=== PATIENT | male | born 1965 | race Caucasian/White ===

== ENCOUNTER 2017-10-15 14:46 | Inpatient (IN) | payer BC ==
[~2017-10-15] VITALS: Ht 188 cm; Wt 128.5 kg
[2017-10-15] MEDS: VANCOMYCIN 1GM/NS 250 ML 250 ML IV SCH (15:15)
[2017-10-15 15:54] VITALS: BP 181/91
[2017-10-15 16:48] LABS: HEMATOCRIT 39.4 % (38.2-49.6); MEAN CORPUSCULAR HEMOGLOBIN 29.1 pg (28-32); MEAN CORPUSCULAR VOLUME 88.3 fL (81-99); PLATELET COUNT 287 x10e3/uL (140-360); RED BLOOD COUNT 4.46 x10e6/uL (4.3-5.7); RED CELL DISTRIBUTION WIDTH 13.6 % (11.7-14.4)
[2017-10-15] MEDS ORDERED: GADOBENATE DIMEGLUMINE 1 ML IV ONE (16:53)
[2017-10-15 17:08] LABS: ALANINE AMINOTRANSFERASE 22 IU/L (0-55); ALBUMIN 3.7 g/dL (3.5-5.0); ALBUMIN/GLOBULIN RATIO 1.1 (0.8-2.0); ALKALINE PHOSPHATASE 61 IU/L (40-150); ANION GAP 13.6 mmol/L (8-16); BLOOD UREA NITROGEN 15 mg/dL (7-26); BUN/CREATININE RATIO 15 (6-25); CALCIUM 9.4 mg/dL (8.4-10.2); CARBON DIOXIDE 25 mmol/L (22-29); CHLORIDE 100 mmol/L (98-107); EST GLOMERULAR FILTRATION RATE > 60 ML/MIN (60-); GLUCOSE 74 mg/dL (74-118); POTASSIUM 3.6 mmol/L (3.5-5.1); SODIUM 135 mmol/L (136-145)
--- NOTE | 2017-10-15 18:04 | Diagnostic Imaging Report ---
TECHNIQUE: Magnetic resonance imaging of the LEFT foot (forefoot) was performed WITH and WITHOUT injected contrast, 20 cc of intravenous MultiHance. HISTORY: Ulcer great toe, rule out osteomyelitis COMPARISON: Left foot radiographs October 16, 2017 DISCUSSION: Bone: Bone marrow edema and corresponding confluence decreased fatty marrow signal involving the distal aspect of the first proximal phalanx and the first distal phalanx. Subtle oblique linear hypointensity at the distal aspect of the first proximal phalanx, this could reflect the age-indeterminate sequela of a nondisplaced fracture. Joints: No dislocation. Small nonspecific effusion involving the first interphalangeal joint and trace nonspecific effusion of the first metatarsophalangeal joint. Soft Tissues: Soft tissue defect at the plantar and medial aspect of the great toe. Nonspecific soft tissue edema, most notably the dorsal aspect of the foot. IMPRESSION: 1. Osteomyelitis involving the distal aspect of the first proximal phalanx and the first distal phalanx of the great toe. Given this distribution and the small nonspecific first interphalangeal joint effusion, these findings are concerning for potential associated septic arthropathy. 2. No soft tissue abscess. 3. Questionable sequela of an age-indeterminate, nondisplaced fracture involving the distal aspect of the first proximal phalanx. A preliminary report was provided by Dr. Katz on October 15, 2017 at 1803 hours. Signed by: Dr. Billy Gutierrez D.O., M.M.M. on 10/19/2017 8:05 AM
--- NOTE | 2017-10-15 20:03 | History and Physical ---
CHIEF COMPLAINT: Right lower extremity ulcer and left lower extremity ulcer. HISTORY OF PRESENT ILLNESS: Mr. Rachid Rodriguez has a history of idiopathic peripheral neuropathy who was in his usual state of health until about 5-6 months prior to admission the patient developed a blister in his left lower foot. He was seen by global marketing intern, and and did not do any good. He was put on p.o. antibiotics for the last 3 months but the patient has not improved. Yesterday, the patient came to the clinic and was found to have sloughing of tissue in the left lower foot and the great toe, and also foul smelling discharge. The patient was admitted to the hospital for IV antibiotics and possible debridement. PAST MEDICAL HISTORY: History of idiopathic peripheral neuropathy, history of hypertension, history of testosterone deficiency. MEDICATIONS: Testosterone and also Lyrica. 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 Also had ACL reconstruction and also in 2012 the patient had toes off on the right foot. SOCIAL HISTORY: No ETOH. No IV drug abuse. Lives with and no smoking history either. REVIEW OF SYSTEMS: Negative for chest pain. No shortness of breath. No nausea, vomiting or diarrhea, no constipation, no rectal bleeding, no hematochezia, no hematemesis. PHYSICAL EXAMINATION VITAL SIGNS: Temperature 99.0, pulse 112, blood pressure 181/91, pulse oximetry 96%. HEENT: Normocephalic, atraumatic. Pupils are reactive to light and accommodation. CVS: S1 and S2 normal. Regular rate and rhythm. ABDOMEN: Nontender, nondistended. EXTREMITIES: Right lower extremity, 5th metatarsal with ulceration, lateral part, deep, granulation tissue present, small amount of sloughing present too. Left lower extremity with ulceration, deep, with exposure of tissue in the left great toe, too. Circulation decreased in both feet. The patient has been seen by Dr. Jefferson and was diagnosed with osteomyelitis. ASSESSMENT: Osteomyelitis. Imaging of the foot, MRI was done and showed concerning for osteomyelitis of the proximal and distal phalanx, left great toe. In addition, there might be nondisplaced fracture of the proximal phalanx of the great toe, as described. PLAN: Put a PICC line on. An ID consult has been done. Vancomycin will be started. Will culture the toe and also do an additional MRI of the right great toe. IV vancomycin will be started. Dr. Jefferson has been consulted. Further recommendations depending on clinical course. Will continue to monitor the patient along with the consultants. Job#: [id number] GH
[2017-10-15] MEDS ORDERED: SODIUM CHLORIDE 0.9% 250ML 0 ML ONE (20:13)
[2017-10-15 20:20] VITALS: BP 175/87
--- NOTE | 2017-10-15 22:05 | Diagnostic Imaging Report ---
EXAM: CHEST XRAY LINE PLACEMENT, AP 1 view INDICATION: PICC placement COMPARISON: None FINDINGS: LINES/TUBES: Tip of left approach PICC terminates in expected location of the mid superior vena cava. LUNGS: No consolidations or edema. PLEURA: No effusions or pneumothorax. HEART AND MEDIASTINUM: Normal size and contour. BONES AND SOFT TISSUES: No acute findings. IMPRESSION: Tip of left approach PICC terminates in expected location of the mid superior vena cava. Signed by: Dr. Selina Santos M.D. on 10/15/2017 10:01 PM
[2017-10-16] VITALS: BP 136/74
[2017-10-16] MEDS ORDERED: SODIUM CHLORIDE 0.9% 250ML 250 ML ONE (03:58)
[2017-10-16] MEDS: VANCOMYCIN 1GM/NS 250 ML 250 ML IV SCH ×2 (04:01→18:01)
[2017-10-16 05:00] VITALS: BP 126/59
[2017-10-16 08:44] VITALS: BP 143/85
[2017-10-16 13:54] VITALS: BP 129/69
--- NOTE | 2017-10-16 16:20 | Consultation ---
DATE OF CONSULTATION: REASON FOR CONSULTATION: Nonhealing ulcer on both feet. HISTORY OF PRESENT ILLNESS: This patient who is a 52-year-old gentleman has history of neuropathy and history of obesity, comes in with nonhealing ulcers on his both feet actually. First one started on his right and the second one started on his left. The patient was admitted because he was not getting any better. The patient has been on antibiotics for 3 months, so he was admitted and infectious disease was consulted. PAST MEDICAL HISTORY: Idiopathic peripheral neuropathy, which is getting progressively worse, hypertension, obesity, and testosterone deficiency. MEDICATIONS: At home, he is on testosterone and Lyrica. SOCIAL HISTORY: There is no smoking, drug abuse, or alcohol abuse. PAST SURGICAL HISTORY: Right foot amputation of the 2nd and 3rd toe and 4th metatarsal and ACL reconstructive surgery. FAMILY HISTORY: Hypertension. REVIEW OF SYSTEMS HEENT: Negative. PULMONARY: Negative. CARDIAC: Negative. : Negative. LABORATORY AND DIAGNOSTIC DATA: White count 9.5 and hemoglobin 13. Sodium 135 and potassium 3.6. Liver enzyme within normal limits. He had an MRI of his foot, which showed osteomyelitis to proximal and distal phalanges of the left great toe. PHYSICAL EXAMINATION GENERAL: He is currently alert and oriented, does not seem to be in acute distress. VITALS: Stable, currently afebrile. HEENT: He is not icteric. NECK: Supple. CHEST: Clear. COR: S1 and S2. No murmur. ABDOMEN: Soft. Bowel sounds present. No tenderness. EXTREMITIES: There is no edema. His big toe, bilaterally they are both swollen and erythematous. There is an ulcer on the left big toe deep all the way to the bone. The right toe, there is also ulcer on the big toe with erythema and edema. IMPRESSION AND PLAN: Osteomyelitis of his toes probably, left and right, in the patient with neuropathy and chronic ulcers are getting progressively worse and obesity. We will give him 8 weeks of intravenous antibiotics vancomycin and cefepime. We will get a PICC line, weekly CBC, weekly Chem panel, and we will follow with you. Job#: [id number] LUZ MARIA
[2017-10-16 16:46] VITALS: BP 163/70
[2017-10-16] MEDS: CEFEPIME HCL 2 GM VIAL IV SCH (18:01)
[2017-10-16] MEDS ORDERED: MICARDIS40 MG PO (18:46)
[2017-10-16] MEDS ORDERED: AMLODIPINE BESYL5 MG PO (18:46)
[2017-10-16] MEDS ORDERED: TORSEMIDE20 MG (18:47)
[2017-10-16] MEDS ORDERED: VITAMIN D1000 UNI1 PO (18:52)
[2017-10-16] MEDS ORDERED: GABAPENTIN300 MG PO (18:54)
[2017-10-16] MEDS ORDERED: ASPIR 8181 MG PO (18:55)
[2017-10-16] MEDS ORDERED: GADOBENATE DIMEGLUMINE 1 ML IV ONE (19:07)
--- NOTE | 2017-10-16 20:08 | Diagnostic Imaging Report ---
EXAM: FOOT LEFT COMPLETE, AP, lateral and oblique INDICATION: Osteomyelitis bilateral feet COMPARISON: None FINDINGS: BONES: No acute fractures. Prior amputation through the second and third distal phalanges. JOINTS: No malalignment. SOFT TISSUES: Normal IMPRESSION: No radiographic evidence of osteomyelitis. Signed by: Dr. Selina Santos M.D. on 10/16/2017 8:05 PM
--- NOTE | 2017-10-16 20:09 | Diagnostic Imaging Report ---
EXAM: FOOT RIGHT COMPLETE, AP, lateral and oblique INDICATION: Osteomyelitis COMPARISON: None FINDINGS: BONES: No acute fractures. Prior amputation of the second, third and fourth metatarsal interphalangeal joints. JOINTS: No malalignment. SOFT TISSUES: Soft tissues on of the foot IMPRESSION: No radiographic evidence of osteomyelitis. Signed by: Dr. Selina Santos M.D. on 10/16/2017 8:06 PM
[2017-10-17] VITALS: BP 143/76
[2017-10-17 04:00] VITALS: BP_SYST 142; BP_SYST 162; BP_DIAS 81
[2017-10-17] MEDS: VANCOMYCIN 1GM/NS 250 ML 250 ML IV SCH ×2 (04:55→14:54)
[2017-10-17] MEDS: CEFEPIME HCL 2 GM VIAL IV SCH ×2 (04:57→14:54)
[2017-10-17 08:00] VITALS: BP 146/82
[2017-10-17] MEDS: GENTAMICIN SULFATE 15 GM CR TP SCH (09:00)
[2017-10-17 12:00] VITALS: BP 137/80
--- NOTE | 2017-10-17 14:28 | Progress Note ---
DATE: SUBJECTIVE: Mr. Rodriguez is doing better today. There is no new complaint. REVIEW OF SYSTEMS HEENT: Negative. PULMONARY: Negative. CARDIAC: Negative. LABORATORY DATA: Reviewed. Chart reviewed. PHYSICAL EXAMINATION GENERAL: He is currently alert, oriented, does not seem to be in any acute distress. VITAL SIGNS: Stable, currently afebrile. HEENT: Not icteric. NECK: Supple. CHEST: Clear bilateral. COR: S1 and S2. No obvious murmur. ABDOMEN: Soft. Positive bowel sounds. No tenderness. EXTREMITIES: No edema. IMPRESSION: Osteomyelitis. The plan is to continue with IV antibiotic as ordered. We will arrange outpatient IV antibiotic, possible discharge Wednesday. Patient would like to leave on Wednesday. We will see if I can arrange discharge planning. Job#: [id number] VAS
[2017-10-17 16:00] VITALS: BP 156/65
[2017-10-18] MEDS: VANCOMYCIN 1GM/NS 250 ML 250 ML IV SCH ×2 (04:06→15:35)
[2017-10-18] MEDS: CEFEPIME HCL 2 GM VIAL IV SCH (04:06)
[2017-10-18 08:27] VITALS: BP 157/62
[2017-10-18] MEDS: GENTAMICIN SULFATE 15 GM CR TP SCH (09:17)
[2017-10-18 11:31] VITALS: BP_SYST 62
[2017-10-18 12:00] VITALS: BP 153/70
[2017-10-18 16:08] VITALS: BP 153/70
[2017-10-18 16:12] VITALS: BP 153/76
[2017-10-18] MEDS: DIPHENHYDRAMINE HCL INJ 50 MG/ML VIAL IV PRN (17:51)
[2017-10-18 20:46] VITALS: BP 165/69
[2017-10-19 01:27] VITALS: BP 143/88
[2017-10-19] MEDS: VANCOMYCIN 1GM/NS 250 ML 250 ML IV SCH (02:56)
[2017-10-19] MEDS: DIPHENHYDRAMINE HCL INJ 50 MG/ML VIAL IV PRN (02:56)
[2017-10-19] MEDS ORDERED: SODIUM CHLORIDE 0.9% 250ML 250 ML ONE (04:12)
[2017-10-19 05:45] VITALS: BP 151/72
--- NOTE | 2017-10-19 07:54 | Diagnostic Imaging Report ---
TECHNIQUE: Magnetic resonance imaging of the RIGHT foot (forefoot) was performed WITH injected contrast, 20 cc of MultiHance. HISTORY: Infection, lateral side, query osteomyelitis COMPARISON: Right foot radiographs October 16, 2017 DISCUSSION: Bone: Status post amputation of the second through fourth digits at the level of the metatarsophalangeal joints. Bone marrow edema involving the distal half of the fifth metatarsal bone and fifth proximal phalanx, most notably the head of the fifth metatarsal bone. Corresponding mild confluent decreased fatty marrow signal involving the head of the fifth metatarsal bone. No acute fracture or osteonecrosis. Joints: No dislocation. Trace nonspecific fifth metatarsophalangeal joint effusion. Soft Tissues: A lateral soft tissue defect, overlying the head of the fifth metatarsal bone. Associated granulation tissue or scarring, without a discrete drainable fluid collection. Prominent regional soft tissue edema. IMPRESSION: 1. Osteomyelitis involving the head of the fifth metatarsal bone. 2. Nonspecific reactive bone marrow edema involving the distal half of the fifth metatarsal bone and fifth proximal phalanx. 3. Trace nonspecific fifth metatarsophalangeal joint effusion. 4. No drainable soft tissue abscess. Signed by: Dr. Billy Gutierrez D.O., M.M.M. on 10/19/2017 7:50 AM
[2017-10-19 08:10] VITALS: BP 149/93
[2017-10-19] MEDS: GENTAMICIN SULFATE 15 GM CR TP SCH (09:00)
[2017-10-19] MEDS ORDERED: CEFEPIME HCL 1 GM VIAL IV SCH ×2 (10:45)
[2017-10-19 12:16] VITALS: BP 166/74
[2017-10-19] MEDS ORDERED: VANCOMYCIN HCL 1,500 MG in SODIUM CHLORIDE 0.9% 250ML 300 ML IV SCH (15:00)
[2017-10-19 16:25] VITALS: BP 156/88
== END 2017-10-19 18:08 | disposition home or self-care (01) | DRG 540 ==
LOC: MED/SURG2 14:46
PROVIDERS: ADMIT Family Medicine; ATTEND Family Medicine
PROC: 02HV33Z Insertion of Infusion Device into Superior Vena Cava, Percutaneous Approach (ICD-10-PCS; principal; 2017-10-15)
DX: M86.9 Osteomyelitis, unspecified (principal); L03.115 Cellulitis of right lower limb; L98.499 Non-pressure chronic ulcer of skin of other sites with unspecified severity; E66.01 Morbid (severe) obesity due to excess calories; Z68.36 Body mass index [BMI] 36.0-36.9, adult; Z89.431 Acquired absence of right foot; B95.62 Methicillin resistant Staphylococcus aureus infection as the cause of diseases classified elsewhere; G60.9 Hereditary and idiopathic neuropathy, unspecified; I10 Essential (primary) hypertension; L97.524 Non-pressure chronic ulcer of other part of left foot with necrosis of bone; L97.514 Non-pressure chronic ulcer of other part of right foot with necrosis of bone
CPT/HCPCS: 36415; 36569; 71045; 80053; 80202; 82948; 85007; 85027; 85651; 87040; 87071; 87186; 87205; J0692; J1200; J3370; J7050

== ENCOUNTER → 2017-11-12 | Outpatient (CLI) | payer BC ==
[~2017-11-12] MED LIST: AMLODIPINE BESYL5 MG PO; ASPIR 8181 MG PO; GABAPENTIN300 MG PO; MICARDIS40 MG PO; TORSEMIDE20 MG; VITAMIN D1000 UNI1 PO
--- NOTE | 2017-11-12 18:08 | Diagnostic Imaging Report ---
PROCEDURE: A single AP view of the chest. COMPARISON: Patients [facility], DX, CHEST XRAY LINE PLACEMENT, 10/15/2017, 21:50. INDICATIONS: picc line placement today FINDINGS: See impression. IMPRESSION: 1. right-sided PICC line has distal tip projecting approximately in the mid SVC. 2. Clear lungs. Mildly prominent cardiac silhouette, which may be partly due to portable AP projection. Pulmonary vasculature is normal. 3. No acute bony abnormalities Nathan Monroe M.D. Dictated by: Nathan Monroe M.D. on 11/12/2017 at 18:12 Electronically approved by: Nathan Monroe M.D. on 11/12/2017 at 18:12
== END ==
LOC: DX 15:09
PROVIDERS: ATTEND Internal Medicine Infectious Disease
DX: M86.8X7 Other osteomyelitis, ankle and foot (principal)
CPT/HCPCS: 36569; 71045

== ENCOUNTER 2017-12-30 17:30 | Inpatient (IN) | payer BC ==
[~2017-12-30] VITALS: Ht 188 cm; Wt 120.9 kg
[2017-12-30] MEDS: VANCOMYCIN 1GM/NS 250 ML 250 ML IV SCH (02:10)
[2017-12-30 18:01] VITALS: BP 123/73
[2017-12-30 18:32] VITALS: BP 123/73
[2017-12-30 18:53] VITALS: BP 123/73
[2017-12-30 19:39] LABS: BASOPHILS % 0.3 % (0.0-1.0); EOSINOPHILS # (AUTO) 0.1 (0.0-0.4); EOSINOPHILS % 1.3 % (0.0-6.0); HEMATOCRIT 33.7 % (38.2-49.6); HEMOGLOBIN 11.1 g/dL (14.0-18.0); LYMPHOCYTES # (AUTO) 1.5 (1.0-3.2); LYMPHOCYTES % 22.2 % (18.0-39.1); MEAN CORPUSCULAR HEMOGLOBIN 27.8 pg (28-32); MEAN CORPUSCULAR HGB CONC 32.9 g/dL (31-35); MEAN CORPUSCULAR VOLUME 84.5 fL (81-99); MONOCYTES # (AUTO) 0.5 (0.2-0.8); MONOCYTES % 6.7 % (4.4-11.3); NEUTROPHILS # (AUTO) 4.6 (2.1-6.9); NEUTROPHILS % 68.6 % (38.7-80.0); PLATELET COUNT 286 x10e3/uL (140-360); RED BLOOD COUNT 3.99 x10e6/uL (4.3-5.7)
[2017-12-30 20:05] LABS: ALANINE AMINOTRANSFERASE 20 IU/L (0-55); ALBUMIN 3.2 g/dL (3.5-5.0); ALBUMIN/GLOBULIN RATIO 0.9 (0.8-2.0); ALKALINE PHOSPHATASE 83 IU/L (40-150); ANION GAP 14.5 mmol/L (8-16); BLOOD UREA NITROGEN 15 mg/dL (7-26); BUN/CREATININE RATIO 16 (6-25); CALCIUM 9.3 mg/dL (8.4-10.2); CARBON DIOXIDE 25 mmol/L (22-29); CHLORIDE 103 mmol/L (98-107); CREATININE, SERUM 0.95 mg/dL (0.72-1.25); EST GLOMERULAR FILTRATION RATE > 60 ML/MIN (60-); GLUCOSE 116 mg/dL (74-118); POTASSIUM 3.5 mmol/L (3.5-5.1); SODIUM 139 mmol/L (136-145)
[2017-12-30 20:12] LABS: ERYTHROCYTE SEDIMENTATION RATE 66 mm/hr (0-13)
[2017-12-30 21:55] VITALS: BP 126/72
--- NOTE | 2017-12-30 22:12 | Diagnostic Imaging Report ---
EXAM: FOOT LEFT COMPLETE, AP, lateral and oblique INDICATION: Ulcers, left foot big toe COMPARISON: Left foot x-ray October 16, 2017 FINDINGS: BONES: No acute fractures. Chronic deformity of the second and third digit distal phalanges. JOINTS: No malalignment. SOFT TISSUES: Soft tissue swelling of the first digit and ulcer at the plantar base of the distal interphalangeal joint. IMPRESSION: No radiographic evidence of acute osteomyelitis. Signed by: Dr. Selina Santos M.D. on 12/30/2017 10:09 PM
--- NOTE | 2017-12-30 22:15 | Diagnostic Imaging Report ---
EXAM: CHEST 2 VIEWS, PA and lateral INDICATION: Foot ulcers COMPARISON: None FINDINGS: LINES/TUBES: None LUNGS: No consolidations or edema. PLEURA: No effusions or pneumothorax. HEART AND MEDIASTINUM: Normal size and contour. BONES AND SOFT TISSUES: No acute findings. IMPRESSION: No acute thoracic abnormality. Signed by: Dr. Selina Santos M.D. on 12/30/2017 10:12 PM
--- NOTE | 2017-12-30 22:15 | Diagnostic Imaging Report ---
EXAM: FOOT RIGHT COMPLETE, AP, lateral and oblique INDICATION: Ulcer, lateral aspect COMPARISON: Left foot x-ray October 16, 2017 FINDINGS: BONES: Interval destruction of the head of the fifth digit metatarsal with permeative pattern throughout the residual metatarsal and periosteal reaction. Additional erosion at the base of the fifth digit proximal phalanx. Prior surgical amputation through the second, third and fourth metatarsal interphalangeal joints. JOINTS: No malalignment. SOFT TISSUES: Soft tissue swelling of the forefoot. IMPRESSION: Osteomyelitis involving the fifth metatarsal and base of the fifth proximal phalanx. Signed by: Dr. Selina Santos M.D. on 12/30/2017 10:11 PM
[2017-12-30 23:40] VITALS: BP 130/74
--- NOTE | 2017-12-31 02:03 | Diagnostic Imaging Report ---
EXAM: CHEST XRAY LINE PLACEMENT, AP 1 view INDICATION: Line placement COMPARISON: PA and lateral view of the chest January 09, 2018 at 2139 hours FINDINGS: LINES/TUBES: Interval placement of left approach PICC with tip terminating at the expected location of the atriocaval junction. LUNGS: No consolidations or edema. PLEURA: No effusions or pneumothorax. HEART AND MEDIASTINUM: Normal size and contour. BONES AND SOFT TISSUES: No acute findings. IMPRESSION: Interval placement of left approach PICC with tip terminating at the expected location of the atriocaval junction. Signed by: Dr. Selina Santos M.D. on 12/31/2017 1:59 AM
[2017-12-31] MEDS ORDERED: SODIUM CHLORIDE 0.9% 250ML 250 ML ONE (02:10)
[2017-12-31] MEDS: VANCOMYCIN 1GM/NS 250 ML 250 ML IV SCH ×2 (02:10→11:30)
[2017-12-31 05:38] VITALS: BP 148/88
[2017-12-31] MEDS: MEROPENEM 500MG 500 MG in SODIUM CHLORIDE 0.9% 50ML 50 ML IV SCH ×2 (05:38→13:56)
[2017-12-31] MEDS ORDERED: MEROPENEM 500 MG VIAL IV SCH ×2 (06:00→18:00)
[2017-12-31 09:33] VITALS: BP 139/72
[2017-12-31 09:34] VITALS: BP 139/72
[2017-12-31] MEDS ORDERED: GADOBENATE DIMEGLUMINE 1 ML IV ONE (11:10)
--- NOTE | 2017-12-31 12:43 | Diagnostic Imaging Report ---
TECHNIQUE: Magnetic resonance imaging of the RIGHT foot was performed without and with injected contrast. 20 mL of MultiHance HISTORY: Pain, evaluate for infection COMPARISON: None available. DISCUSSION: Soft tissue ulceration of the lateral forefoot. Osteomyelitis of the fifth toe involving the phalanges and metatarsal. Probable prior amputation of the fifth metacarpal head. Probable osteomyelitis involving the lateral cuboid. 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 Small soft tissue abscess around the fifth metatarsal short axis image 11. Diffuse soft tissue edema and atrophy of the musculature. IMPRESSION: Osteomyelitis of the fifth toe involving the metatarsal and phalanges. Probable osteomyelitis of the lateral cuboid. Signed by: Dr. Jean Escalante M.D. on 12/31/2017 12:40 PM
[2017-12-31] MEDS ORDERED: MEROPENEM 500 MG VIAL ONE (13:53)
[2017-12-31] MEDS ORDERED: SODIUM CHLORIDE 0.9% 100 ML 0 ML ONE (14:28)
[2017-12-31] MEDS ORDERED: SODIUM CHLORIDE 0.9% 50ML 50 ML ONE (14:30)
[2017-12-31] MEDS ORDERED: FENTANYL CITRATE/PF 100MCG/2 ML INJ ONE (15:09)
[2017-12-31] MEDS ORDERED: MIDAZOLAM HCL 2 MG/2 ML VIAL ONE (15:09)
[2017-12-31] MEDS ORDERED: MINERAL OIL STERILE 10ML VIAL ONE (15:27)
[2017-12-31] MEDS ORDERED: BUPIVACAINE HCL 0.5% INJ 30 ML VIAL INJ ONE (15:33)
[2017-12-31] MEDS ORDERED: MEROPENEM 500MG 500 MG in SODIUM CHLORIDE 0.9% 50ML 50 ML IV SCH (18:00)
[2017-12-31] MEDS ORDERED: SEVOFLURANE INHAL SOLN 250 ML PEN BTL ONE (18:15)
[2017-12-31] MEDS ORDERED: LIDOCAINE HCL 2% LOCAL INJ 5 ML SDV VIAL INJ ONE (18:15)
[2017-12-31] MEDS ORDERED: PROPOFOL IV EMULSION 10 MG/ML 20 ML VIAL ONE (18:15)
[2017-12-31] MEDS ORDERED: ONDANSETRON HCL INJ 2 MG/ML VIAL ONE (18:15)
[2017-12-31] MEDS ORDERED: DEXAMETHASONE SOD PHOS INJ 4 MG/ML VIAL ONE (18:15)
--- NOTE | 2017-12-31 18:15 | Consultation ---
DATE OF CONSULTATION: INFECTIOUS DISEASE CONSULTATION REASON FOR CONSULTATION: Osteomyelitis of the right foot, ulcer on the left, neuropathy. HISTORY OF PRESENT ILLNESS: Thank you so much for asking me to see this patient. This is a well known to me 52-year-old gentleman. He was here in the hospital back on October 15. The patient at that time had a left foot ulcer, right foot ulcer. He was on oral antibiotic, but he failed. The patient does have underlying history of severe neuropathy. The patient at that time was diagnosed with osteomyelitis on the left foot. He was treated with IV antibiotic and discharged home with 6 weeks of IV antibiotic. The patient at that time grew MRSA. Patient was discharged home with IV antibiotic. He was doing well, healed. He did have an ulcer on the left. It was dry, but the right foot during followup visit was red and swollen and there was drainage. Patient is being admitted for drainage and I\T\D and debridement and a PICC line as well as IV antibiotic. Infectious Disease was consulted. The patient is currently lying in bed, no complaints. Patient was admitted. I called Dr. Jefferson to see him as soon as possible, and he was kind. He took him to surgery earlier today. I did see the patient post surgery. He is lying in bed comfortably at the present time. I have reviewed with him his lab and his data, and I also discussed with Dr. Jefferson. The patient was found to have a bone infection on the right foot and underwent debridement. The left foot underwent debridement of the ulcer and placement of skin graft. Patient is currently lying in bed comfortably. PAST MEDICAL HISTORY: Neuropathy, obesity, osteomyelitis of the left foot, bilateral feet ulcers. PAST SURGICAL HISTORY: Debridement on both feet, multiple. ALLERGIES: NKA. SOCIAL HISTORY: There is no smoking, drug abuse or alcohol abuse. FAMILY HISTORY: Otherwise unremarkable. REVIEW OF SYSTEMS: HEENT: Negative. PULMONARY: Negative. CARDIAC: Negative. : Negative. SKIN: There is no other rash. JOINTS: Negative. PHYSICAL EXAMINATION: GENERAL: He is currently alert, oriented, does not seem to be in acute distress. VITALS: Stable. Currently afebrile. HEENT: Normocephalic. He does not appear icteric. NECK: Supple. No JVD. No lymphadenopathy. No thyromegaly. CHEST: Clear bilaterally. HEART: S1 and S2. No S3, no S4, no murmur. ABDOMEN: Soft. Bowel sounds present. No tenderness. No hepatomegaly. EXTREMITIES: Both feet are wrapped. The right foot, I discussed with Podiatry. The infection was deep to the bone. I discussed with him the finding. Please refer to his OP report. IMPRESSION: Osteomyelitis of the right foot in a patient with neuropathy. He just finished 6 weeks of IV antibiotic, now with recurrence. Discussed with the patient it has to do with the neuropathy. He must keep his weight off. Unfortunately, the patient does have to work so he can keep his job and his livelihood. Discussed with the patient to use crutches and walker and wheelchair as much as possible. We will give him meropenem and vancomycin. Will do meropenem 500 q.6 and vancomycin 1500 q.12 and will follow trough. Obtain a sed rate and C-reactive protein. Will follow with you. Job#: [id number] ARLENE
[2017-12-31] MEDS ORDERED: SODIUM HYPOCHLORITE 0.25% 480 ML SOLN IR ONE (18:30)
--- NOTE | 2017-12-31 19:16 | Consultation ---
DATE OF CONSULTATION: December 31, [address] Rubio for this consultation. REASON FOR CONSULTATION: Infected right foot ulcer. HISTORY OF PRESENT ILLNESS: This is a 52-year-old gentleman, well known to me from my office. He was admitted to the hospital with infected right foot ulcer. MRI was done which showed osteomyelitis on the 5th toe, metatarsal and phalanges. He has had a chronic left foot wound. The patient has been very noncompliant. Wounds have been nonhealing. He denies any nausea or vomiting. No fever or chills. He has had the wound over 6 months. PAST MEDICAL HISTORY: Peripheral neuropathy. Hypertension. MEDICATIONS: MAR reviewed. PAST SURGICAL HISTORY: Multiple toe amputations. ACL reconstruction. ALLERGIES: LISINOPRIL. SOCIAL HISTORY: Lives with his . No alcohol, tobacco or illicit drug use. FAMILY HISTORY: Noncontributory. REVIEW OF SYSTEMS: Some generalized malaise, some weakness. No chest pain. No calf pain. No headache. All other systems were reviewed and were negative except as stated above. PHYSICAL EXAMINATION VITAL SIGNS: Temperature 98.8, heart rate 58, respiratory rate 20, blood pressure 148/88. GENERAL: The patient is alert and oriented x3. He is in no acute distress. EXTREMITIES: Dorsalis pedis and posterior tibial pulses were palpable. Capillary refill time less than 3 seconds. Skin temperature warm to touch. Ulcer along the plantar aspect of the left great toe measuring approximately 3 cm x 2.5 cm with a granular base. Some periwound hyperkeratosis. Infected ulcer in the plantar aspect of the right foot, submetatarsal side measuring 3 cm x 3 cm with exposed bone. Some erythema and edema. Light touch and pinprick sensation is reduced. Some serosanguineous discharge. LABORATORY DATA: White blood cells 6.7, hemoglobin ___, hematocrit 33.7, platelets 286,000. Sodium 139. Potassium 3.5. Chloride 103. Bicarb 25. BUN 15, creatinine 0.95. Glucose 116. MRI of the right foot positive for osteomyelitis of the 5th toe involving the metatarsal and phalanges. ASSESSMENT 1. Infected ulcer seen submetatarsal side, right foot with acute osteomyelitis. 2. Cellulitis of right foot. 3. Peripheral neuropathy. 4. Chronic nonhealing ulceration, left great toe. PLAN: I discussed with Dr. Shebib. Continue IV antibiotics, vancomycin and meropenem. Will likely need 6 weeks of IV antibiotics. We discussed further options with the patient and the . We discussed operative versus nonoperative treatment. Will plan on left great toe Integra skin layers substitute application and debridement of infected right foot ulcer and bone. All questions were answered to the patient's satisfaction. All risks and benefits of the procedure were explained. No guarantees were given. Informed consent was obtained. The patient has been n.p.o. after midnight. Decision for surgery was made. Will see the patient for surgery this afternoon. Will follow clinically. Thank you for allowing me to assist in the patient's care. Job#: [id number]
--- NOTE | 2017-12-31 19:32 | Operative Report ---
DATE OF PROCEDURE: December 31, 2017 PREOPERATIVE DIAGNOSES: 1. Chronic nonhealing ulceration left great toe. 2. Infected ulceration submetatarsal 5 right foot with acute osteomyelitis. 3. Cellulitis right foot. POSTOPERATIVE DIAGNOSES: 1. Chronic nonhealing ulceration left great toe. 2. Infected ulceration submetatarsal 5 right foot with acute osteomyelitis. 3. Cellulitis right foot. OPERATIONS PERFORMED: 1. Wound bed preparation with Integra bilayer skin graft placement, chronic left great toe ulcer measuring 30 mm x 25 mm. 2. Debridement of infected ulceration submetatarsal 5 right foot including subcutaneous tissue, fascia, muscle and bone measuring 30 mm x 30 mm. CLINICAL LABORATORY AIDE: None. ANESTHESIA: General. HEMOSTASIS: Achieved with an ankle tourniquet inflated to 250 mmHg along the left and right ankles. MATERIALS USED: 1. Integra bilayer skin equivalent. 2. Skin mansi. 3. 3-0 nylon. INJECTABLES: 10 mL of 0.5% Marcaine plain injected postoperatively along the left great toe. MICROBIOLOGY: None. PATHOLOGY: 5th metatarsal bone right foot. INDICATIONS FOR PROCEDURE: This is a 52-year-old gentleman. He presented to the hospital with an infected right foot ulcer. MRI was done, which showed osteomyelitis. Patient has also had a chronic left foot ulcer. We discussed several options with the patient and the . We decided on taking the patient to the operating room today for a debridement of the right foot ulcer and bone and a skin equivalent application on the left great toe. All questions were answered to patient's satisfaction. All risks and benefits of the procedure were explained. No guarantees were given. Informed consent was obtained. DESCRIPTION OF PROCEDURE: After patient's preoperative workup was completed, patient was brought into the operating room, placed in the supine position upon the surgical table, at which time general anesthesia was administered. Patient's left and right foot were prepped and draped in the usual sterile manner. After an appropriate time out was performed, we were ready to begin our surgical procedure. Attention was directed to the right ankle. The pneumatic ankle tourniquet was inflated. Attention was then directed to the plantar aspect of the right foot. There was a full-thickness ulcer measuring approximately 30 x 30 mm with exposed bone. Utilizing a number 15 blade, I was able to debride and excise all devitalized fibrotic and necrotic tissue including subcutaneous tissue, fascia and muscle. Some of the 5th metatarsal bone was also noted to be eroded. Utilizing a mallet and osteotome, I was able to debride and excise the distal one-third aspect of the 5th metatarsal bone. All bony spicula were then smoothed utilizing a hand rasp. The 5th metatarsal bone was sent off to pathology for a biopsy. I was able to copiously irrigate the wound cavity with saline. Hemostasis was achieved with pressure. Some of the proximal aspect of the wound cavity was then reapproximated utilizing 3-0 nylon. The right foot was then dressed in Xeroform, 4 x 4 gauze, Kerlix and Cosmo bandage. The pneumatic ankle tourniquet was deflated. Attention was directed to the left ankle. The pneumatic ankle tourniquet was inflated. Attention was directed to the plantar aspect of the left great toe ulcer which was measuring approximately 30 mm x 25 mm. The wound bed was about 95% granular, 5% fibrotic. Utilizing a number 15 blade, I was able to prepare the wound cavity for a skin-substituted application by excising any kind of devitalized fibrotic tissue. I used a number 15 blade and tissue nippers and a curet. We spent quite a bit of time debriding and preparing the wound cavity for the skin substitute, and 100% granular wound base was noted. I irrigated with copious amounts of normal sterile saline. This completed the wound bed preparation of the left great toe ulcer. At this time, the Integra bilayer skin substitute was applied along the left great toe ulcer. I was able to cut the skin substitute according to the shape and size of the wound cavity. It was reinforced with skin mansi. The left foot was then dressed with Adaptic, 4 x 4 gauze, mineral oil with cotton balls, Kerlix and Cosmo bandage. The pneumatic ankle tourniquet was deflated, and normal vascular status returned to the left foot. The patient was noted to have tolerated the procedures and the anesthesia well, and at no time was there a break in sterility. The patient was transferred from the operating room to the recovery room with vital signs stable and neurovascular status intact. After a brief period in the recovery room, patient was able to be discharged back to the floor. COMPLICATIONS: None. All sponge, needle and instrument counts were correct. I was present through all aspects of the procedure. Job#: [id number] EV
[2017-12-31 20:00] VITALS: BP 133/63
[2017-12-31] MEDS: HYDROCODONE/APAP 7.5MG-325MG 1 EA TAB PO PRN (20:50)
[2017-12-31 21:00] VITALS: BP 133/63
[2017-12-31] MEDS ORDERED: VANCOMYCIN HCL 1.5 GM in SODIUM CHLORIDE 0.9% 250ML 300 ML IV SCH (21:00)
[2017-12-31] MEDS: MEROPENEM 1 GM VIAL IV SCH (21:49)
[2017-12-31] MEDS: VANCOMYCIN HCL 1.5 GM in SODIUM CHLORIDE 0.9% 250ML 300 ML IV SCH (21:50)
[2017-12-31] MEDS ORDERED: MEROPENEM 1GRAM 1 GM in SODIUM CHLORIDE 0.9% 100 ML 100 ML IV SCH (22:00)
[2018-01-01] VITALS: BP 127/66
[2018-01-01 04:00] VITALS: BP 136/68
[2018-01-01] MEDS: MEROPENEM 1 GM VIAL IV SCH ×3 (06:35→21:27)
[2018-01-01 08:00] VITALS: BP 129/70
[2018-01-01] MEDS: ASPIRIN 81 MG CHEW TAB PO SCH (09:00)
[2018-01-01] MEDS: GABAPENTIN 300 MG CAP PO SCH (09:00)
[2018-01-01] MEDS: TELMISARTAN 40 MG TAB PO SCH (09:00)
[2018-01-01] MEDS: AMLODIPINE BESYLATE 5 MG TAB PO SCH (09:00)
[2018-01-01 12:00] VITALS: BP 141/73
[2018-01-01] MEDS: VANCOMYCIN HCL 1.5 GM in SODIUM CHLORIDE 0.9% 250ML 300 ML IV SCH ×2 (13:00→21:27)
[2018-01-01 16:00] VITALS: BP 139/62
[2018-01-01 21:31] VITALS: BP 132/61
[2018-01-02 01:30] VITALS: BP 134/61
[2018-01-02 05:04] VITALS: BP 152/75
[2018-01-02] MEDS: MEROPENEM 1 GM VIAL IV SCH (05:31)
[2018-01-02 07:13] VITALS: BP 147/75
[2018-01-02 08:05] VITALS: BP 147/75
[2018-01-02] MEDS: TELMISARTAN 40 MG TAB PO SCH (09:00)
[2018-01-02] MEDS: ASPIRIN 81 MG CHEW TAB PO SCH (09:00)
[2018-01-02] MEDS: AMLODIPINE BESYLATE 5 MG TAB PO SCH (09:00)
[2018-01-02] MEDS: GABAPENTIN 300 MG CAP PO SCH (09:00)
[2018-01-02] MEDS: VANCOMYCIN HCL 1.5 GM in SODIUM CHLORIDE 0.9% 250ML 300 ML IV SCH (10:10)
[2018-01-02] MEDS: HYDROCODONE/APAP 7.5MG-325MG 1 EA TAB PO PRN (10:19)
[2018-01-02 12:00] VITALS: BP 131/77
[2018-01-03] MEDS ORDERED: ERGOCALCIFEROL 50,000 UNIT CAP PO SCH (09:00)
== END 2018-01-02 14:42 | disposition home or self-care (01) | DRG 464 ==
LOC: IMCU 17:44 → UNDODISIN 19:24 → MED/SURG2 01-01 15:08
PROVIDERS: ADMIT Family Medicine; ATTEND Family Medicine
PROC: 02HV33Z Insertion of Infusion Device into Superior Vena Cava, Percutaneous Approach (ICD-10-PCS; 2017-12-30)
PROC: 0HRNXK3 Replacement of Left Foot Skin with Nonautologous Tissue Substitute, Full Thickness, External Approach (ICD-10-PCS; 2017-12-31)
PROC: 0HBNXZZ Excision of Left Foot Skin, External Approach (ICD-10-PCS; 2017-12-31)
PROC: 0QBN0ZZ Excision of Right Metatarsal, Open Approach (ICD-10-PCS; principal; 2017-12-31 14:00)
DX: M86.171 Other acute osteomyelitis, right ankle and foot (principal); L03.115 Cellulitis of right lower limb; L97.414 Non-pressure chronic ulcer of right heel and midfoot with necrosis of bone; I10 Essential (primary) hypertension; G60.9 Hereditary and idiopathic neuropathy, unspecified; Z91.19 Patient's noncompliance with other medical treatment and regimen; Z88.8 Allergy status to other drugs, medicaments and biological substances; L97.529 Non-pressure chronic ulcer of other part of left foot with unspecified severity; D64.9 Anemia, unspecified; E66.9 Obesity, unspecified; Z68.36 Body mass index [BMI] 36.0-36.9, adult; Z86.14 Personal history of Methicillin resistant Staphylococcus aureus infection
CPT/HCPCS: 36415; 36569; 71045; 71046; 80053; 80202; 85025; 85651; 86140; 88305; 88311; 93005; J1100; J2001; J2185; J2250; J2405; J3370; J7050; Q4104

== ENCOUNTER → 2018-03-02 | Outpatient (CLI) | payer BC ==
[~2018-03-02] MED LIST changes: +GADOBENATE DIMEGLUMINE 1 ML IV ONE
--- NOTE | 2018-03-02 15:10 | Diagnostic Imaging Report ---
MRI of the right foot with and without contrast. History: Osteomyelitis. Lateral foot pain. Infection. Decreased range of motion. Technique: Multiplanar multisequence MRI of the foot after the administration of 20 cc intra-articular gadolinium contrast material. Comparison: December 31, 2017 Findings: Soft tissue ulceration and postsurgical change of the lateral forefoot. Osteomyelitis of the remaining fifth metatarsal. Additionally, there is abnormal bone marrow edema involving the fifth toe best seen on series 6 image 9 through 12 worrisome for osteomyelitis. Mild bone marrow edema in the cuboid bone, proximal and distal fourth metatarsal could be stress related. 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 Small soft tissue phlegmon at the lateral aspect of the foot at the level of the distal residual fifth metatarsal Diffuse soft tissue edema and atrophy of the musculature. IMPRESSION: Osteomyelitis of the remaining portion of the fifth metatarsal and fifth toe. Bone marrow edema in the cuboid bone, proximal and distal fourth metatarsal could be stress related. Signed by: Dr. Mirza Cordero M.D. on 03/02/2018 3:07 PM
== END ==
LOC: MRI 13:24
PROVIDERS: ATTEND Internal Medicine Infectious Disease
DX: M86.8X7 Other osteomyelitis, ankle and foot (principal)

== ENCOUNTER → 2018-03-07 | Outpatient (CLI) | payer BC ==
[~2018-03-07] MED LIST changes: +COLLAGENASE OINTMENT 30 GM TUBE ONE; -GADOBENATE DIMEGLUMINE 1 ML IV ONE; +MUPIROCIN 2% OINT 22 GM TUBE ONE
== END ==
LOC: EDSEX → WCC 11:24
PROVIDERS: ATTEND Podiatrist Foot & Ankle Surgery
DX: T86.821 Skin graft (allograft) (autograft) failure (principal); M86.671 Other chronic osteomyelitis, right ankle and foot; L97.521 Non-pressure chronic ulcer of other part of left foot limited to breakdown of skin; L97.421 Non-pressure chronic ulcer of left heel and midfoot limited to breakdown of skin; L03.818 Cellulitis of other sites; R60.0 Localized edema; G90.09 Other idiopathic peripheral autonomic neuropathy; I10 Essential (primary) hypertension

== ENCOUNTER → 2018-03-08 | Outpatient (CLI) | payer BC ==
[~2018-03-08] MED LIST changes: -COLLAGENASE OINTMENT 30 GM TUBE ONE; -MUPIROCIN 2% OINT 22 GM TUBE ONE
== END ==
LOC: EDSEX → WCC 08:49
PROVIDERS: ATTEND Podiatrist Foot & Ankle Surgery
DX: T86.821 Skin graft (allograft) (autograft) failure (principal); M96.89 Other intraoperative and postprocedural complications and disorders of the musculoskeletal system; M86.671 Other chronic osteomyelitis, right ankle and foot; L03.818 Cellulitis of other sites; L97.421 Non-pressure chronic ulcer of left heel and midfoot limited to breakdown of skin; L97.521 Non-pressure chronic ulcer of other part of left foot limited to breakdown of skin; I87.2 Venous insufficiency (chronic) (peripheral); R60.0 Localized edema; I10 Essential (primary) hypertension; A49.02 Methicillin resistant Staphylococcus aureus infection, unspecified site; G90.09 Other idiopathic peripheral autonomic neuropathy; X58.XXXA Exposure to other specified factors, initial encounter; Z01.811 Encounter for preprocedural respiratory examination

== ENCOUNTER → 2018-03-08 | Outpatient (CLI) | payer BC ==
--- NOTE | 2018-03-08 09:53 | Diagnostic Imaging Report ---
PROCEDURE: Frontal and lateral views of the chest. COMPARISON: Chest radiograph 12/31/17. INDICATIONS: PRE OP HYPERBARIC CHAMBER TREATMENT FINDINGS: Lines/tubes: Left sided PICC Terminates in the expected location of the cavoatrial junction. Lungs: The lungs are well inflated and clear. There is no evidence of pneumonia or pulmonary edema. Pleura: There is no pleural effusion or pneumothorax. Heart and mediastinum: The cardiomediastinal silhouette is unremarkable. Bones: No acute bony abnormality. IMPRESSION: No acute radiographic abnormality. Dictated by: KHLOE MARQUIS M.D. on 03/08/2018 at 10:01 Electronically approved by: KHLOE MARQUIS M.D. on 03/08/2018 at 10:01
== END ==
LOC: EDSEX → RAD 08:36
PROVIDERS: ATTEND Podiatrist Foot & Ankle Surgery
DX: Z01.811 Encounter for preprocedural respiratory examination (principal)
CPT/HCPCS: 71046

== ENCOUNTER → 2018-03-09 | Outpatient (CLI) | payer BC | LOC: EDSEX → WCC 11:09 | PROVIDERS: ATTEND Family Medicine | DX: T86.821 Skin graft (allograft) (autograft) failure (principal); M96.89 Other intraoperative and postprocedural complications and disorders of the musculoskeletal system; M86.671 Other chronic osteomyelitis, right ankle and foot; L97.521 Non-pressure chronic ulcer of other part of left foot limited to breakdown of skin; L97.421 Non-pressure chronic ulcer of left heel and midfoot limited to breakdown of skin; L03.818 Cellulitis of other sites; I87.2 Venous insufficiency (chronic) (peripheral); I10 Essential (primary) hypertension; G90.09 Other idiopathic peripheral autonomic neuropathy; A49.02 Methicillin resistant Staphylococcus aureus infection, unspecified site; X58.XXXA Exposure to other specified factors, initial encounter; Z01.811 Encounter for preprocedural respiratory examination ==

== ENCOUNTER → 2018-03-15 | Outpatient (CLI) | payer BC ==
[~2018-03-15] MED LIST changes: +LIDOCAINE VISC 2% SOLN 15 ML UDC ONE
== END ==
LOC: EDSEX → WCC 10:00
PROVIDERS: ATTEND Podiatrist Foot & Ankle Surgery
DX: T86.821 Skin graft (allograft) (autograft) failure (principal); M96.89 Other intraoperative and postprocedural complications and disorders of the musculoskeletal system; M86.671 Other chronic osteomyelitis, right ankle and foot; L97.421 Non-pressure chronic ulcer of left heel and midfoot limited to breakdown of skin; L97.521 Non-pressure chronic ulcer of other part of left foot limited to breakdown of skin; L03.818 Cellulitis of other sites; I87.2 Venous insufficiency (chronic) (peripheral); I10 Essential (primary) hypertension; A49.02 Methicillin resistant Staphylococcus aureus infection, unspecified site; G90.09 Other idiopathic peripheral autonomic neuropathy; X58.XXXA Exposure to other specified factors, initial encounter; Z01.811 Encounter for preprocedural respiratory examination
CPT/HCPCS: 11042; G0277

== ENCOUNTER → 2018-03-18 | Outpatient (CLI) | payer BC ==
[~2018-03-18] MED LIST changes: -LIDOCAINE VISC 2% SOLN 15 ML UDC ONE
== END ==
LOC: EDSEX → WCC 14:14
PROVIDERS: ATTEND Podiatrist Foot & Ankle Surgery
DX: T86.821 Skin graft (allograft) (autograft) failure (principal); M96.89 Other intraoperative and postprocedural complications and disorders of the musculoskeletal system; M86.671 Other chronic osteomyelitis, right ankle and foot; L97.421 Non-pressure chronic ulcer of left heel and midfoot limited to breakdown of skin; L97.521 Non-pressure chronic ulcer of other part of left foot limited to breakdown of skin; L03.818 Cellulitis of other sites; I87.2 Venous insufficiency (chronic) (peripheral); G90.09 Other idiopathic peripheral autonomic neuropathy; X58.XXXA Exposure to other specified factors, initial encounter; I10 Essential (primary) hypertension; A49.02 Methicillin resistant Staphylococcus aureus infection, unspecified site; Z01.811 Encounter for preprocedural respiratory examination

== ENCOUNTER → 2018-03-22 | Outpatient (CLI) | payer BC | LOC: EDSEX → WCC 09:13 | PROVIDERS: ATTEND Podiatrist Foot & Ankle Surgery | DX: T86.821 Skin graft (allograft) (autograft) failure (principal); M96.89 Other intraoperative and postprocedural complications and disorders of the musculoskeletal system; M86.671 Other chronic osteomyelitis, right ankle and foot; L97.521 Non-pressure chronic ulcer of other part of left foot limited to breakdown of skin; L97.421 Non-pressure chronic ulcer of left heel and midfoot limited to breakdown of skin; L03.818 Cellulitis of other sites; I87.2 Venous insufficiency (chronic) (peripheral); I10 Essential (primary) hypertension; G90.09 Other idiopathic peripheral autonomic neuropathy; A49.02 Methicillin resistant Staphylococcus aureus infection, unspecified site; X58.XXXA Exposure to other specified factors, initial encounter; Z01.811 Encounter for preprocedural respiratory examination | CPT/HCPCS: 11042; 99213; G0277 ==

== ENCOUNTER → 2018-03-24 | Outpatient (CLI) | payer BC ==
[~2018-03-24] MED LIST changes: +COLLAGENASE OINTMENT 30 GM TUBE ONE; +LIDOCAINE/PRILOCAINE 2.5-2.5% KIT ONE; +MINERAL OIL/PETROLAT/GLYCERI 6OZ BTL ONE
== END ==
LOC: EDSEX → WCC 11:47
PROVIDERS: ATTEND Podiatrist Foot & Ankle Surgery
DX: T86.821 Skin graft (allograft) (autograft) failure (principal); M96.89 Other intraoperative and postprocedural complications and disorders of the musculoskeletal system; M86.671 Other chronic osteomyelitis, right ankle and foot; L97.521 Non-pressure chronic ulcer of other part of left foot limited to breakdown of skin; L97.421 Non-pressure chronic ulcer of left heel and midfoot limited to breakdown of skin; L03.818 Cellulitis of other sites; I87.2 Venous insufficiency (chronic) (peripheral); I10 Essential (primary) hypertension; G90.09 Other idiopathic peripheral autonomic neuropathy; X58.XXXA Exposure to other specified factors, initial encounter; A49.02 Methicillin resistant Staphylococcus aureus infection, unspecified site; Z01.811 Encounter for preprocedural respiratory examination

== ENCOUNTER → 2018-03-28 | Outpatient (CLI) | payer BC ==
[~2018-03-28] MED LIST changes: -COLLAGENASE OINTMENT 30 GM TUBE ONE; -LIDOCAINE/PRILOCAINE 2.5-2.5% KIT ONE; -MINERAL OIL/PETROLAT/GLYCERI 6OZ BTL ONE
== END ==
LOC: EDSEX → WCC 10:52
PROVIDERS: ATTEND Podiatrist Foot & Ankle Surgery
DX: T86.821 Skin graft (allograft) (autograft) failure (principal); M96.89 Other intraoperative and postprocedural complications and disorders of the musculoskeletal system; M86.671 Other chronic osteomyelitis, right ankle and foot; L97.521 Non-pressure chronic ulcer of other part of left foot limited to breakdown of skin; L97.421 Non-pressure chronic ulcer of left heel and midfoot limited to breakdown of skin; L03.818 Cellulitis of other sites; I87.2 Venous insufficiency (chronic) (peripheral); I10 Essential (primary) hypertension; G90.09 Other idiopathic peripheral autonomic neuropathy; A49.02 Methicillin resistant Staphylococcus aureus infection, unspecified site; Z01.811 Encounter for preprocedural respiratory examination

== ENCOUNTER → 2018-03-29 | Outpatient (CLI) | payer BC | LOC: EDSEX → WCC 12:37 | PROVIDERS: ATTEND Podiatrist Foot & Ankle Surgery | DX: T86.821 Skin graft (allograft) (autograft) failure (principal); G90.09 Other idiopathic peripheral autonomic neuropathy; L03.818 Cellulitis of other sites; L97.421 Non-pressure chronic ulcer of left heel and midfoot limited to breakdown of skin; L97.521 Non-pressure chronic ulcer of other part of left foot limited to breakdown of skin; M86.671 Other chronic osteomyelitis, right ankle and foot; A49.02 Methicillin resistant Staphylococcus aureus infection, unspecified site; I10 Essential (primary) hypertension; I87.2 Venous insufficiency (chronic) (peripheral); M96.89 Other intraoperative and postprocedural complications and disorders of the musculoskeletal system; X58.XXXA Exposure to other specified factors, initial encounter; Z01.811 Encounter for preprocedural respiratory examination ==

== ENCOUNTER → 2018-03-30 | Outpatient (CLI) | payer BC | LOC: WCC 08:59 | PROVIDERS: ATTEND Podiatrist Foot & Ankle Surgery | DX: T86.821 Skin graft (allograft) (autograft) failure (principal); M96.89 Other intraoperative and postprocedural complications and disorders of the musculoskeletal system; M86.671 Other chronic osteomyelitis, right ankle and foot; L97.521 Non-pressure chronic ulcer of other part of left foot limited to breakdown of skin; L97.421 Non-pressure chronic ulcer of left heel and midfoot limited to breakdown of skin; L03.818 Cellulitis of other sites; I87.2 Venous insufficiency (chronic) (peripheral); G90.09 Other idiopathic peripheral autonomic neuropathy; X58.XXXA Exposure to other specified factors, initial encounter; I10 Essential (primary) hypertension; A49.02 Methicillin resistant Staphylococcus aureus infection, unspecified site; Z01.811 Encounter for preprocedural respiratory examination ==

== ENCOUNTER → 2018-04-04 | Outpatient (CLI) | payer BC | LOC: WCC 13:28 | PROVIDERS: ATTEND Podiatrist Foot & Ankle Surgery | DX: T86.821 Skin graft (allograft) (autograft) failure (principal); M96.89 Other intraoperative and postprocedural complications and disorders of the musculoskeletal system; M86.671 Other chronic osteomyelitis, right ankle and foot; L03.818 Cellulitis of other sites; L97.521 Non-pressure chronic ulcer of other part of left foot limited to breakdown of skin; L97.421 Non-pressure chronic ulcer of left heel and midfoot limited to breakdown of skin; I87.2 Venous insufficiency (chronic) (peripheral); I10 Essential (primary) hypertension; G90.09 Other idiopathic peripheral autonomic neuropathy; X58.XXXA Exposure to other specified factors, initial encounter; A49.02 Methicillin resistant Staphylococcus aureus infection, unspecified site; Z01.811 Encounter for preprocedural respiratory examination | CPT/HCPCS: 97602; G0277 ==

== ENCOUNTER → 2018-04-12 | Outpatient (CLI) | payer BC | LOC: WCC 08:14 | PROVIDERS: ATTEND Podiatrist Foot & Ankle Surgery | DX: T86.821 Skin graft (allograft) (autograft) failure (principal); M96.89 Other intraoperative and postprocedural complications and disorders of the musculoskeletal system; M86.671 Other chronic osteomyelitis, right ankle and foot; L97.421 Non-pressure chronic ulcer of left heel and midfoot limited to breakdown of skin; L97.521 Non-pressure chronic ulcer of other part of left foot limited to breakdown of skin; L03.818 Cellulitis of other sites; I87.2 Venous insufficiency (chronic) (peripheral); I10 Essential (primary) hypertension; G90.09 Other idiopathic peripheral autonomic neuropathy; A49.02 Methicillin resistant Staphylococcus aureus infection, unspecified site; X58.XXXA Exposure to other specified factors, initial encounter; Z01.811 Encounter for preprocedural respiratory examination | CPT/HCPCS: 11042; G0277 ==

== ENCOUNTER → 2018-04-18 | Outpatient (CLI) | payer BC | LOC: WCC 08:18 | PROVIDERS: ATTEND Podiatrist Foot & Ankle Surgery | DX: T86.821 Skin graft (allograft) (autograft) failure (principal); M96.89 Other intraoperative and postprocedural complications and disorders of the musculoskeletal system; M86.671 Other chronic osteomyelitis, right ankle and foot; L97.521 Non-pressure chronic ulcer of other part of left foot limited to breakdown of skin; L97.421 Non-pressure chronic ulcer of left heel and midfoot limited to breakdown of skin; L03.818 Cellulitis of other sites; I87.2 Venous insufficiency (chronic) (peripheral); G90.09 Other idiopathic peripheral autonomic neuropathy; I10 Essential (primary) hypertension; A49.02 Methicillin resistant Staphylococcus aureus infection, unspecified site; X58.XXXA Exposure to other specified factors, initial encounter; Z01.811 Encounter for preprocedural respiratory examination ==

== ENCOUNTER → 2018-04-19 | Outpatient (CLI) | payer BC | LOC: WCC 12:23 | PROVIDERS: ATTEND Podiatrist Foot & Ankle Surgery | DX: T86.821 Skin graft (allograft) (autograft) failure (principal); M96.89 Other intraoperative and postprocedural complications and disorders of the musculoskeletal system; M86.671 Other chronic osteomyelitis, right ankle and foot; L97.521 Non-pressure chronic ulcer of other part of left foot limited to breakdown of skin; L97.421 Non-pressure chronic ulcer of left heel and midfoot limited to breakdown of skin; L03.818 Cellulitis of other sites; I87.2 Venous insufficiency (chronic) (peripheral); G90.09 Other idiopathic peripheral autonomic neuropathy; I10 Essential (primary) hypertension; A49.02 Methicillin resistant Staphylococcus aureus infection, unspecified site; X58.XXXA Exposure to other specified factors, initial encounter; Z01.811 Encounter for preprocedural respiratory examination | CPT/HCPCS: 11042; G0277 ==

== ENCOUNTER → 2018-04-25 | Outpatient (CLI) | payer BC ==
[~2018-04-25] MED LIST changes: +LIDOCAINE/PRILOCAINE 2.5-2.5% KIT ONE; +MINERAL OIL/PETROLAT/GLYCERI 6OZ BTL ONE
== END ==
LOC: WCC 10:03
PROVIDERS: ATTEND Podiatrist Foot & Ankle Surgery
DX: T86.821 Skin graft (allograft) (autograft) failure (principal); M96.89 Other intraoperative and postprocedural complications and disorders of the musculoskeletal system; M86.671 Other chronic osteomyelitis, right ankle and foot; L03.818 Cellulitis of other sites; L97.421 Non-pressure chronic ulcer of left heel and midfoot limited to breakdown of skin; L97.521 Non-pressure chronic ulcer of other part of left foot limited to breakdown of skin; I87.2 Venous insufficiency (chronic) (peripheral); G90.09 Other idiopathic peripheral autonomic neuropathy; I10 Essential (primary) hypertension; X58.XXXA Exposure to other specified factors, initial encounter; A49.02 Methicillin resistant Staphylococcus aureus infection, unspecified site; Z01.811 Encounter for preprocedural respiratory examination
CPT/HCPCS: 99212; G0277

== ENCOUNTER → 2018-04-26 | Outpatient (CLI) | payer BC ==
[~2018-04-26] MED LIST changes: -LIDOCAINE/PRILOCAINE 2.5-2.5% KIT ONE; -MINERAL OIL/PETROLAT/GLYCERI 6OZ BTL ONE
== END ==
LOC: WCC 10:26
PROVIDERS: ATTEND Podiatrist Foot & Ankle Surgery
DX: T86.821 Skin graft (allograft) (autograft) failure (principal); M96.89 Other intraoperative and postprocedural complications and disorders of the musculoskeletal system; M86.671 Other chronic osteomyelitis, right ankle and foot; L97.521 Non-pressure chronic ulcer of other part of left foot limited to breakdown of skin; L97.421 Non-pressure chronic ulcer of left heel and midfoot limited to breakdown of skin; L03.818 Cellulitis of other sites; I87.2 Venous insufficiency (chronic) (peripheral); I10 Essential (primary) hypertension; G90.09 Other idiopathic peripheral autonomic neuropathy; A49.02 Methicillin resistant Staphylococcus aureus infection, unspecified site; X58.XXXA Exposure to other specified factors, initial encounter; Z01.811 Encounter for preprocedural respiratory examination
CPT/HCPCS: 11042; G0277

== ENCOUNTER → 2018-05-02 | Outpatient (CLI) | payer BC | LOC: WCC 10:12 | PROVIDERS: ATTEND Podiatrist Foot & Ankle Surgery | DX: T86.821 Skin graft (allograft) (autograft) failure (principal); M86.671 Other chronic osteomyelitis, right ankle and foot; L97.521 Non-pressure chronic ulcer of other part of left foot limited to breakdown of skin; L97.421 Non-pressure chronic ulcer of left heel and midfoot limited to breakdown of skin; L03.818 Cellulitis of other sites; I87.2 Venous insufficiency (chronic) (peripheral); G90.09 Other idiopathic peripheral autonomic neuropathy; I10 Essential (primary) hypertension; X58.XXXA Exposure to other specified factors, initial encounter; M96.89 Other intraoperative and postprocedural complications and disorders of the musculoskeletal system; A49.02 Methicillin resistant Staphylococcus aureus infection, unspecified site; Z01.811 Encounter for preprocedural respiratory examination ==

== ENCOUNTER → 2018-05-03 | Outpatient (CLI) | payer BC | LOC: WCC 08:18 | PROVIDERS: ATTEND Podiatrist Foot & Ankle Surgery | DX: T86.821 Skin graft (allograft) (autograft) failure (principal); M96.89 Other intraoperative and postprocedural complications and disorders of the musculoskeletal system; M86.671 Other chronic osteomyelitis, right ankle and foot; L97.521 Non-pressure chronic ulcer of other part of left foot limited to breakdown of skin; L97.421 Non-pressure chronic ulcer of left heel and midfoot limited to breakdown of skin; G90.09 Other idiopathic peripheral autonomic neuropathy; L03.818 Cellulitis of other sites; I87.2 Venous insufficiency (chronic) (peripheral); I10 Essential (primary) hypertension; A49.02 Methicillin resistant Staphylococcus aureus infection, unspecified site; X58.XXXA Exposure to other specified factors, initial encounter; Z01.811 Encounter for preprocedural respiratory examination | CPT/HCPCS: 11042; G0277 ==

== ENCOUNTER → 2018-05-05 | Outpatient (CLI) | payer BC | LOC: WCC 11:22 | PROVIDERS: ATTEND Podiatrist Foot & Ankle Surgery | DX: T86.821 Skin graft (allograft) (autograft) failure (principal); M96.89 Other intraoperative and postprocedural complications and disorders of the musculoskeletal system; M86.671 Other chronic osteomyelitis, right ankle and foot; L97.521 Non-pressure chronic ulcer of other part of left foot limited to breakdown of skin; L97.421 Non-pressure chronic ulcer of left heel and midfoot limited to breakdown of skin; L03.818 Cellulitis of other sites; I87.2 Venous insufficiency (chronic) (peripheral); I10 Essential (primary) hypertension; G90.09 Other idiopathic peripheral autonomic neuropathy; X58.XXXA Exposure to other specified factors, initial encounter; A49.02 Methicillin resistant Staphylococcus aureus infection, unspecified site; Z01.811 Encounter for preprocedural respiratory examination | CPT/HCPCS: 99213; G0277 ==

== ENCOUNTER → 2018-05-09 | Outpatient (CLI) | payer BC | LOC: WCC 11:47 | PROVIDERS: ATTEND Podiatrist Foot & Ankle Surgery | DX: T86.821 Skin graft (allograft) (autograft) failure (principal); M86.671 Other chronic osteomyelitis, right ankle and foot; L97.521 Non-pressure chronic ulcer of other part of left foot limited to breakdown of skin; L97.421 Non-pressure chronic ulcer of left heel and midfoot limited to breakdown of skin; L03.818 Cellulitis of other sites; I87.2 Venous insufficiency (chronic) (peripheral); G90.09 Other idiopathic peripheral autonomic neuropathy; I10 Essential (primary) hypertension; X58.XXXA Exposure to other specified factors, initial encounter; M96.89 Other intraoperative and postprocedural complications and disorders of the musculoskeletal system; A49.02 Methicillin resistant Staphylococcus aureus infection, unspecified site; Z01.811 Encounter for preprocedural respiratory examination | CPT/HCPCS: 99213; G0277 ==

== ENCOUNTER → 2018-05-10 | Outpatient (CLI) | payer BC | LOC: WCC 08:36 | PROVIDERS: ATTEND Podiatrist Foot & Ankle Surgery | DX: T86.821 Skin graft (allograft) (autograft) failure (principal); M96.89 Other intraoperative and postprocedural complications and disorders of the musculoskeletal system; M86.671 Other chronic osteomyelitis, right ankle and foot; L97.421 Non-pressure chronic ulcer of left heel and midfoot limited to breakdown of skin; L97.521 Non-pressure chronic ulcer of other part of left foot limited to breakdown of skin; L03.818 Cellulitis of other sites; I87.2 Venous insufficiency (chronic) (peripheral); I10 Essential (primary) hypertension; G90.09 Other idiopathic peripheral autonomic neuropathy; A49.02 Methicillin resistant Staphylococcus aureus infection, unspecified site; X58.XXXA Exposure to other specified factors, initial encounter; Z01.811 Encounter for preprocedural respiratory examination | CPT/HCPCS: 11042; G0277 ==

== ENCOUNTER → 2018-05-12 | Outpatient (CLI) | payer BC | LOC: WCC 09:12 | PROVIDERS: ATTEND Family Medicine | DX: T86.821 Skin graft (allograft) (autograft) failure (principal); M96.89 Other intraoperative and postprocedural complications and disorders of the musculoskeletal system; M86.671 Other chronic osteomyelitis, right ankle and foot; L97.521 Non-pressure chronic ulcer of other part of left foot limited to breakdown of skin; L97.421 Non-pressure chronic ulcer of left heel and midfoot limited to breakdown of skin; L03.818 Cellulitis of other sites; I87.2 Venous insufficiency (chronic) (peripheral); G90.09 Other idiopathic peripheral autonomic neuropathy; I10 Essential (primary) hypertension; X58.XXXA Exposure to other specified factors, initial encounter; A49.02 Methicillin resistant Staphylococcus aureus infection, unspecified site; Z01.811 Encounter for preprocedural respiratory examination ==

== ENCOUNTER → 2018-05-23 | Outpatient (CLI) | payer BC | LOC: WCC 07:38 | PROVIDERS: ATTEND Podiatrist Foot & Ankle Surgery | DX: T86.821 Skin graft (allograft) (autograft) failure (principal); M96.89 Other intraoperative and postprocedural complications and disorders of the musculoskeletal system; M86.671 Other chronic osteomyelitis, right ankle and foot; L97.521 Non-pressure chronic ulcer of other part of left foot limited to breakdown of skin; L97.421 Non-pressure chronic ulcer of left heel and midfoot limited to breakdown of skin; L03.818 Cellulitis of other sites; I87.2 Venous insufficiency (chronic) (peripheral); I10 Essential (primary) hypertension; G90.09 Other idiopathic peripheral autonomic neuropathy; X58.XXXA Exposure to other specified factors, initial encounter; Z01.811 Encounter for preprocedural respiratory examination | CPT/HCPCS: 11042; G0277 ==

== ENCOUNTER → 2018-05-31 | Outpatient (CLI) | payer BC ==
[~2018-05-31] MED LIST changes: +LIDOCAINE VISC 2% SOLN 15 ML UDC ONE
== END ==
LOC: WCC 09:38
PROVIDERS: ATTEND Podiatrist Foot & Ankle Surgery
DX: T86.821 Skin graft (allograft) (autograft) failure (principal); M96.89 Other intraoperative and postprocedural complications and disorders of the musculoskeletal system; M86.671 Other chronic osteomyelitis, right ankle and foot; G90.09 Other idiopathic peripheral autonomic neuropathy; L97.521 Non-pressure chronic ulcer of other part of left foot limited to breakdown of skin; L97.421 Non-pressure chronic ulcer of left heel and midfoot limited to breakdown of skin; L03.818 Cellulitis of other sites; I87.2 Venous insufficiency (chronic) (peripheral); I10 Essential (primary) hypertension; A49.02 Methicillin resistant Staphylococcus aureus infection, unspecified site; X58.XXXA Exposure to other specified factors, initial encounter; Z01.811 Encounter for preprocedural respiratory examination

== ENCOUNTER → 2018-06-07 | Outpatient (CLI) | payer BC ==
[~2018-06-07] MED LIST changes: -LIDOCAINE VISC 2% SOLN 15 ML UDC ONE
== END ==
LOC: WCC 10:21
PROVIDERS: ATTEND Podiatrist Foot & Ankle Surgery
DX: T86.821 Skin graft (allograft) (autograft) failure (principal); M96.89 Other intraoperative and postprocedural complications and disorders of the musculoskeletal system; M86.671 Other chronic osteomyelitis, right ankle and foot; L97.421 Non-pressure chronic ulcer of left heel and midfoot limited to breakdown of skin; L97.521 Non-pressure chronic ulcer of other part of left foot limited to breakdown of skin; L03.818 Cellulitis of other sites; I87.2 Venous insufficiency (chronic) (peripheral); I10 Essential (primary) hypertension; G90.09 Other idiopathic peripheral autonomic neuropathy; A49.02 Methicillin resistant Staphylococcus aureus infection, unspecified site; X58.XXXA Exposure to other specified factors, initial encounter; Z01.811 Encounter for preprocedural respiratory examination

== ENCOUNTER → 2018-07-12 | Outpatient (CLI) | payer BC | LOC: RAD 15:54 | PROVIDERS: ATTEND Podiatrist Foot & Ankle Surgery | DX: I82.401 Acute embolism and thrombosis of unspecified deep veins of right lower extremity (principal) | CPT/HCPCS: 93971 ==

== ENCOUNTER → 2018-08-08 | Outpatient (CLI) | payer BC ==
[2018-08-08 14:27] LABS: INR 1.04; PROTHROMBIN TIME 14.1 seconds (11.9-14.5)
[2018-08-08 14:31] LABS: BLOOD UREA NITROGEN 18 mg/dL (7-26); BUN/CREATININE RATIO 17 (6-25); CREATININE, SERUM 1.08 mg/dL (0.72-1.25); EST GLOMERULAR FILTRATION RATE > 60 ML/MIN (60-)
--- NOTE | 2018-08-08 17:39 | Diagnostic Imaging Report ---
EXAMINATION: CHEST XRAY LINE PLACEMENT INDICATION: Line placement. COMPARISON: None FINDINGS: AP view TUBES and LINES: Interval placement of left-sided PICC with tip at the cavoatrial junction. LUNGS/PLEURA: The lungs are clear. No pleural effusion or pneumothorax. HEART AND MEDIASTINUM: Borderline enlarged cardiac silhouette. BONES AND SOFT TISSUES: No acute osseous lesion. Soft tissues are unremarkable. UPPER ABDOMEN: No free air under the diaphragm. IMPRESSION: No acute thoracic abnormality. Left-sided PICC at the cavoatrial junction. Signed by: Gui Bauer MD on 08/08/2018 5:35 PM
== END ==
LOC: DX 13:41
PROVIDERS: ATTEND Internal Medicine Infectious Disease
DX: S91.302A Unspecified open wound, left foot, initial encounter (principal)
CPT/HCPCS: 36415; 36569; 71045; 82565; 84520; 85610